=== PATIENT | male | born 1975 ===

== ENCOUNTER 2018-04-10 17:12 | Emergency (ER) | payer OTHER ==
[2018-04-10 18:01] VITALS: BP 122/77; PULSE 88; RESP 16; TEMP 97.7; O2SAT 98
--- NOTE | 2018-04-10 19:09 | ED PDOC ---
Upper Extremity Pain/Injury Time Seen by Provider: 04/10/18 18:07 Chief Complaint (Nursing): Finger,Hand,&Wrist Chief Complaint (Provider): Left Hand Injury History Per: Patient History/Exam Limitations: no limitations Onset/Duration Of Symptoms: Days (x1) Current Symptoms Are (Timing): Still Present Additional Complaint(s): 42 y/o right hand dominant male with no PMHx presenting for evaluation of left hand injury prior to arrival. 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 He reports localized pain. He states he controlled bleeding with a bandage. He denies taking medication prior to arrival. PMD: None Past Medical History Reviewed: Historical Data, Nursing Documentation, Vital Signs Vital Signs: Last Vital Signs Temp 97.7 F 04/10/18 17:59 Pulse 88 04/10/18 17:59 Resp 16 04/10/18 17:59 BP 122/77 04/10/18 17:59 Pulse Ox 98 04/10/18 17:59 - Medical History PMH: No Chronic Diseases - Surgical History Surgical History: Appendectomy - Family History Family History: States: Unknown Family Hx - Social History Current smoker - smoking cessation education provided: Yes (half pack per day) Alcohol: None Drugs: Cannabis (daily) - Home Medications Home Medications: Ambulatory Orders Medication Instructions Recorded Bacitracin Ointment [Bacitracin] 1 applic TOP BID #1 tube 04/10/18 - Allergies Allergies/Adverse Reactions: Allergies Allergy/AdvReac Type Severity Reaction Status Date / Time No Known Allergies Allergy Verified 04/10/18 17:59 Review of Systems ROS Statement: Except As Marked, All Systems Reviewed And Found Negative Musculoskeletal: Positive for: Hand Pain (left 4th digit) Skin: Positive for: Lesions (left 4th digit lacertion) Physical Exam - Reviewed Nursing Documentation Reviewed: Yes Vital Signs Reviewed: Yes - Physical Exam Comments: GENERAL APPEARANCE: Patient is awake, alert, oriented x 3, in no acute distress. SKIN: Warm, dry; (-) cyanosis. CHEST AND RESPIRATORY: (-) rales, (-) rhonchi, (-) wheezes; breath sounds equal bilaterally. HEART AND CARDIOVASCULAR: (-) irregularity; (-) murmur, (-) gallop. LEFT HAND: (+) 1.5 cm U shaped laceration to distal palmar left 4th digit with skip flap, (+) active bleeding, (+) tenderness. Full ROM of all digits. NV intact. NEURO AND PSYCH: Mental status as above. - ECG O2 Sat by Pulse Oximetry: 98 (RA) Pulse Ox Interpretation: Normal Medical Decision Making Medical Decision Makin:10 Impression: finger laceration Plan: -Left hand X-Ray -Laceration repair -Reevaluation 19:30 Left hand X-Ray as read by me: No acute fractures. Patient notified they will be contacted if any discrepancies arise when the official radiology report is available. 19:45 Laceration repair performed by Ralph SIMMONS. See procedure note below. Patient tolerated procedure well. Educated on wound care. NV intact after procedure 20:30 On re-evaluation, patient reports improvement of symptoms. On exam, patient remains AAOx3, in no acute distress. On exam, neck is supple, lungs CTA, cardiac RRR, neuro exam shows no focal findings. VSS, stable for discharge. Diagnostic results d/w the patient in great detail. Dx of finger laceration d/w the patient. Based on history, exam and diagnostic results plan will be for discharge and outpatient follow up. Advised to follow up with primary care physician/clinic in 1-2 days without fail. Advised to use medication as prescribed. Return to the emergency room at any time for any new or worsening symptoms. Patient states he fully agrees with and understands discharge instructions. States that he agrees with the plan and disposition. Verbalized and repeated discharge instructions and plan. I have given the patient opportunity to ask any additional questions. Scribe Attestation: Documented by Abdelrahman Hugo, acting as a scribe for Josselyn Rosas PA-C. Provider Scribe Attestation: All medical record entries made by the scribe were at my direction and personally dictated by me. I have reviewed the chart and agree that the record accurately reflects my personal performance of the history, physical exam, medical decision making, and the department course for this patient. I have also personally directed, reviewed, and agree with the discharge instructions and disposition. Procedures - Laceration/Wound Repair Left 4th digit Wound Length (cm): 1.5 Wound's Depth, Shape: irregular ("U" shaped) Wound Explored: no foreign body removed Irrigated w/ Saline (ccs): 250 Betadine Prep?: No Anesthesia: 1% Lidocaine Volume Anesthetic (ccs): 2 Wound Repaired With: Sutures Suture Size/Type: 6:0 (monocryl) Number of Sutures: 7 Layer Closure?: Yes Wound Complexity: Simple Sterile Dressing Applied?: Yes Progress: 20:15 Bacitracin and sterile dressing applied. Patient tolerated procedure well. Advised sutures are absorbable and do not need to be removed. Disposition - Clinical Impression Clinical Impression: Finger laceration - Patient ED Disposition Is Patient to be Admitted: No Counseled Patient/Family Regarding: Studies Performed, Diagnosis, Need For Followup, Rx Given - Disposition [facility]errals: [facility] [Outside] Disposition: Routine/Home Disposition Time: 20:25 Condition: STABLE Additional Instructions: FOLLOW UP WITH PMD/CLINIC IN 1-2 DAYS FOR WOUND CHECK. RETURN TO ED WITH ANY NEW OR WORSENING SYMPTOMS. Prescriptions: Bacitracin Ointment [Bacitracin] 1 applic TOP BID #1 tube Instructions: Wound Care, Laceration Repair With Stitches (DC) Forms: [employer] (German) Print Language: MALAY
[2018-04-10] MEDS ORDERED: Lidocaine 1% Inj (20ml) IJ ONE (19:15)
[2018-04-10] MEDS ORDERED: Lidocaine 1% Inj (20ml) ONE (19:54)
--- NOTE | 2018-04-11 10:23 | RAD ---
PROCEDURE: Left Hand Radiographs. HISTORY: 4th digit injury COMPARISON: None. FINDINGS: BONES: Normal. No fracture. JOINTS: Normal. No osteoarthritic changes. SOFT TISSUES: There is laceration or disruption of the soft tissues about the distal aspect of the 4th distal phalanx. OTHER FINDINGS: None. IMPRESSION: No acute fracture.
== END 2018-04-10 20:38 | disposition home or self-care (01) ==
LOC: H.ER 17:12
DX: S61.215A Laceration without foreign body of left ring finger without damage to nail, initial encounter (principal); W26.8XXA Contact with other sharp object(s), not elsewhere classified, initial encounter; Y99.0 Civilian activity done for income or pay

== ENCOUNTER 2018-04-30 14:27 | Emergency (ER) | payer SELFPAY ==
[2018-04-30 14:35] VITALS: RESP 16; TEMP 97.9; O2SAT 100
--- NOTE | 2018-04-30 14:40 | ED PDOC ---
HPI: General Adult Time Seen by Provider: 04/30/18 14:37 Chief Complaint (Nursing): Abnormal Skin Integrity Chief Complaint (Provider): skin rash History Per: Patient Additional Complaint(s): 22-year-old male presents with a painful rash to right axillary region 3 days. Patient's believes he has an infection. She denies trauma to affected area, denies active drainage, denies fever or chills. 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) - Home Medications Home Medications: Ambulatory Orders Medication Instructions Recorded Bacitracin Ointment [Bacitracin] 1 applic TOP BID #1 tube 04/10/18 Amoxicillin/Clavulanate [Augmentin 1 tab PO BID #14 tab 04/30/18 875 MG-125 MG] Clindamycin [Cleocin] 300 mg PO QID #28 cap 04/30/18 Ibuprofen [Motrin Tab] 800 mg PO Q8 PRN #20 tab 04/30/18 - Allergies Allergies/Adverse Reactions: Allergies Allergy/AdvReac Type Severity Reaction Status Date / Time No Known Allergies Allergy Verified 04/10/18 17:59 Review of Systems ROS Statement: Except As Marked, All Systems Reviewed And Found Negative Constitutional: Negative for: Fever, Chills Skin: Positive for: Other (rash to right axillary region) Physical Exam - Reviewed Nursing Documentation Reviewed: Yes Vital Signs Reviewed: Yes - Physical Exam Appears: Positive for: Well, Non-toxic, No Acute Distress Skin: Positive for: Normal Color, Rash (Multiple indurated abscesses noted to right axillary region on erythematous base, moderately tender to palpation, no erythematous streaking) Eye Exam: Positive for: Normal appearance Cardiovascular/Chest: Positive for: Regular Rate, Rhythm Respiratory: Positive for: Normal Breath Sounds. Negative for: Wheezing, Respiratory Distress Extremity: Positive for: Normal ROM Neurologic/Psych: Positive for: Alert, Oriented - ECG O2 Sat by Pulse Oximetry: 100 Pulse Ox Interpretation: Normal Medical Decision Making Medical Decision Making: Impression: multiple abscesses Patient given prescriptions for Augmentin, clindamycin and Motrin. He was instructed to apply warm compresses and Epsom salts to affected area as often as possible. Patient was referred to clinic for follow up. Disposition - Clinical Impression Clinical Impression: Furuncles - Patient ED Disposition Is Patient to be Admitted: No Counseled Patient/Family Regarding: Diagnosis, Need For Followup, Rx Given - Disposition Referrals: [facility] [Outside] Disposition: Routine/Home Disposition Time: 14:46 Condition: STABLE Additional Instructions: APPLY WARM COMPRESSES TO AFFECTED AREA WITH EPSOM SALTS OFTEN POSSIBLE. TAKE RX MEDS DIRECTED. FOLLOW UP IN 2-3 DAYS WITH CLINIC. Prescriptions: Amoxicillin/Clavulanate [Augmentin 875 MG-125 MG] 1 tab PO BID #14 tab Clindamycin [Cleocin] 300 mg PO QID #28 cap Ibuprofen [Motrin Tab] 800 mg PO Q8 PRN #20 tab PRN Reason: Pain, Moderate (4-7) Instructions: Boil Forms: [employer] (Yi)
[2018-04-30 15:03] VITALS: BP 110/68; PULSE 83
== END 2018-04-30 15:00 | disposition home or self-care (01) ==
LOC: H.ER 14:27
DX: L02.92 Furuncle, unspecified (principal)